=== PATIENT | male | born 1945 | race Caucasian/White ===

== ENCOUNTER → 2016-12-20 | Day surgery (SDC) | payer OTHER ==
[~2016-12-20] VITALS: Ht 172.7 cm; Wt 83.5 kg
[~2016-12-20] MED LIST: ALBUTEROL0.09 MG/A2 INH; ASPIRIN325 M2 PO; AVODART0.5 M1 PO; AVODART0.5 MG PO; BACTRIM DS 8001 TA1 PO; CALCIUM 500 + D1 TAB PO; CALCIUM1 CAP; DIOVAN40 MG PO; HYZAAR 50/12.5M1 TAB PO; LIPITOR40 MG PO; LOPRESSOR50 MG PO; METOPROLOL50 MG PO; MILK THISTLE150 MG PO; MULTIVITAMIN1 CTB; MULTIVITAMIN1 TA1 PO; Vicodin 5/500 505 MG PO; ZITHROMAX Z PA250 MG
[2016-12-20 06:45] VITALS: BP 127/77
[2016-12-20 07:54] VITALS: BP 120/71
[2016-12-20 08:09] VITALS: BP 125/69
[2016-12-20 08:24] VITALS: BP 128/71
== END | disposition home or self-care (01) ==
LOC: SDC 12-14 08:45
DX: Z09 Encounter for follow-up examination after completed treatment for conditions other than malignant neoplasm (principal); K57.30 Diverticulosis of large intestine without perforation or abscess without bleeding; I25.10 Atherosclerotic heart disease of native coronary artery without angina pectoris; I25.2 Old myocardial infarction; K21.9 Gastro-esophageal reflux disease without esophagitis; I10 Essential (primary) hypertension; E78.00 Pure hypercholesterolemia, unspecified; F17.210 Nicotine dependence, cigarettes, uncomplicated; Z98.890 Other specified postprocedural states; Z88.0 Allergy status to penicillin; Z86.010 Personal history of colon polyps; Z82.49 Family history of ischemic heart disease and other diseases of the circulatory system; Z82.3 Family history of stroke

== ENCOUNTER → 2017-11-19 | Outpatient (CLI) | payer OTHER ==
[2017-11-19 13:45] LABS: ALBUMIN 4.2 gm/dl (3.1-4.5); BUN 15 mg/dl (7-24); CHLORIDE 97 mmol/L (98-107); POTASSIUM 4.6 mmol/L (3.5-5.1); SODIUM 134 mmol/L (136-145); TOTAL PROTEIN 7.5 gm/dL (6.4-8.2)
[2017-11-19 13:52] LABS: ALKALINE PHOSPHATASE 73 U/L (45-117); BILIRUBIN, DIRECT 0.2 mg/dL (0.0-0.2); CHOLESTEROL 158 mg/dL (<200); CREATININE 0.86 mg/dL (0.70-1.30); HDL CHOLESTEROL 88 mg/dl (40-60); LDL CHOLESTEROL 50 mg/dL (9-159); PHOSPHOROUS 4.1 mg/dL (2.5-4.9); SGOT/AST 22 IU/L (3-35); SGPT/ALT 31 U/L (12-78); TRIGLYCERIDES 99 mg/dl (<150); VLDL CHOLESTEROL 20 mg/dL (6-40)
[2017-11-19 14:04] LABS: VITAMIN D, 25-HYDROXY 25.8 ng/mL (30-100)
== END | disposition home or self-care (01) ==
LOC: LAB 11:44
PROVIDERS: Internal Medicine
DX: E78.2 Mixed hyperlipidemia (principal); I10 Essential (primary) hypertension; E55.9 Vitamin D deficiency, unspecified; R73.01 Impaired fasting glucose

== ENCOUNTER → 2018-02-22 | Outpatient (CLI) | payer OTHER ==
[2018-02-22 14:49] LABS: BUN 19 mg/dl (7-24); CHLORIDE 100 mmol/L (98-107); CREATININE 0.86 mg/dL (0.70-1.30); POTASSIUM 4.9 mmol/L (3.5-5.1); SODIUM 137 mmol/L (136-145)
== END | disposition home or self-care (01) ==
LOC: LAB 14:03
PROVIDERS: Internal Medicine Nephrology
DX: E87.1 Hypo-osmolality and hyponatremia (principal); R50.9 Fever, unspecified

== ENCOUNTER → 2019-01-01 | Day surgery (SDC) | payer OTHER ==
[~2019-01-01] VITALS: Ht 172.7 cm; Wt 88.5 kg
[~2019-01-01] MED LIST changes: +DOXAZOSIN4 MG PO
--- NOTE | ~2019-01-01 | O ---
[place], [place] O[facility]ATIVE [id number] UNIT #: [id number] ROOM: DOCTOR: BRENNEN BOB,CASSANDRA BIRTHDATE: [birth year] DOS: 01/01/2019 HISTORY OF PRESENT ILLNESS: This is a 73-year-old patient who presented with chief complaint of history of colonic polyp extremely concerned, recent history of total prostatectomy, status post radiation therapy, status post hormonal management. PROCEDURE: Today's procedure part of investigation is colonoscopy. PREMEDICATION: Propofol. SCOPE: Olympus forward-viewing colonoscope 10L video. REPORT: After putting the patient in left lateral position and application of lubricant to the scope, the scope was introduced. Thereafter, under direct visualization, advanced through the length of colon without difficulty. Evidence of diverticulosis coli, extending to the right colon was identified. Base of the cecum explored, appendiceal orifice identified, ileocecal valve was defined. Scope was gradually withdrawn from ascending, transverse, descending colon. The patient extubated, tolerated the procedure well. IMPRESSION: Diverticulosis coli, otherwise no polyp ____ concern. PLAN AND DISCUSSION: Does not need a colonoscopy until next 5 years. High fiber diet. ACTIVITY: Ad keegan. FOLLOWUP: Routinely with you in office p.r.n. Thank you very much indeed. CASSANDRA HUTTON MD CM:OPRECORD:OPERATIVE NOTE [id number] CASSANDRA HUTTON MD 01/01/19 1101 interface
[2019-01-01 07:17] VITALS: BP 137/87
[2019-01-01 08:45] VITALS: BP 117/78
[2019-01-01 09:00] VITALS: BP 140/86
[2019-01-01 09:15] VITALS: BP 122/83
== END | disposition home or self-care (01) ==
LOC: SDC 12-30 13:15
DX: Z12.11 Encounter for screening for malignant neoplasm of colon (principal); K57.30 Diverticulosis of large intestine without perforation or abscess without bleeding; I10 Essential (primary) hypertension; I25.2 Old myocardial infarction; F17.210 Nicotine dependence, cigarettes, uncomplicated; E78.5 Hyperlipidemia, unspecified; I25.10 Atherosclerotic heart disease of native coronary artery without angina pectoris; Z72.89 Other problems related to lifestyle; Z98.890 Other specified postprocedural states; Z79.899 Other long term (current) drug therapy; Z86.010 Personal history of colon polyps; Z82.49 Family history of ischemic heart disease and other diseases of the circulatory system; Z82.3 Family history of stroke
CPT/HCPCS: 00812; G0105

== ENCOUNTER → 2019-04-24 | Outpatient (CLI) | payer OTHER | END | disposition home or self-care (01) | LOC: CT 12:53 | DX: J84.10 Pulmonary fibrosis, unspecified (principal); R06.02 Shortness of breath; J90 Pleural effusion, not elsewhere classified; I25.10 Atherosclerotic heart disease of native coronary artery without angina pectoris; R91.1 Solitary pulmonary nodule ==

== ENCOUNTER → 2020-05-24 | Outpatient (CLI) | payer OTHER | END | disposition home or self-care (01) | LOC: COVID19 12:00 | PROVIDERS: ATTEND Family Medicine | DX: Z20.828 Contact with and (suspected) exposure to other viral communicable diseases (principal) ==

== ENCOUNTER → 2021-01-07 | Day surgery (SDC) | payer OTHER ==
[~2021-01-07] VITALS: Ht 172.7 cm; Wt 87.5 kg
[~2021-01-07] MED LIST changes: +BUDESONIDE-FO10.2 GM INH; +FUROSEMIDE40 MG PO; +XARELTO10 MG PO
[2021-01-07 13:08] VITALS: BP 181/136
[2021-01-07 14:00] VITALS: BP 144/72
[2021-01-07 14:13] VITALS: BP 149/77
[2021-01-07 14:27] VITALS: BP 173/96
[2021-01-07 14:37] VITALS: BP 160/78
== END | disposition home or self-care (01) ==
LOC: SDC 01-04 08:00 → LAB 01-04 08:00 → SDC 01-04 13:00 → LAB 08:00 → SDC 08:00 → LAB 11:00 → SDC 11:00
PROVIDERS: ATTEND Internal Medicine Cardiovascular Disease
DX: I48.92 Unspecified atrial flutter (principal); I11.0 Hypertensive heart disease with heart failure; I50.9 Heart failure, unspecified; I25.2 Old myocardial infarction; E78.5 Hyperlipidemia, unspecified; I25.10 Atherosclerotic heart disease of native coronary artery without angina pectoris; J44.9 Chronic obstructive pulmonary disease, unspecified; Z85.46 Personal history of malignant neoplasm of prostate; Z88.0 Allergy status to penicillin; Z20.822 Contact with and (suspected) exposure to COVID-19; Z79.01 Long term (current) use of anticoagulants; Z79.899 Other long term (current) drug therapy

== ENCOUNTER → 2023-12-11 | Outpatient (CLI) | payer OTHER ==
[~2023-12-11] MED LIST changes: +ALDACTONE25 MG PO; +LOPRESSOR50 M1 PO; -LOPRESSOR50 MG PO; +METOPROLOL TAR100 M1 PO; +TERBINAFINE250 MG PO; +VITAMIN D325 MCG PO
[2023-12-11 15:53] LABS: ALKALINE PHOSPHATASE 128 U/L (46-116); BUN 19 mg/dl (9-23); CHLORIDE 98 mmol/L (98-107); POTASSIUM 4.6 mmol/L (3.4-5.1); SGPT/ALT 24 U/L (5-49); TOTAL PROTEIN 6.8 gm/dL (6.0-8.0)
== END | disposition home or self-care (01) ==
LOC: LAB 15:17
PROVIDERS: ATTEND Internal Medicine Cardiovascular Disease
DX: E87.5 Hyperkalemia (principal)